=== PATIENT | male | born 1980 | race American Indian/Alaskan Native ===

== ENCOUNTER 2017-10-05 12:17 | Emergency (ER) | payer OTHER ==
[2017-10-05 12:29] VITALS: BP 143/84
[2017-10-05] MEDS ORDERED: VALIUM PO ONE (15:31)
[2017-10-05] MEDS ORDERED: TORADOL IM ONE (15:31)
--- NOTE | 2017-10-05 15:36 | Emergency Department Report ---
Chief Complaint: Pain General Stated Complaint: NECK/BACK/BILATERAL WRIST PAIN Time Seen by Provider: 10/05/17 15:22 - HPI History of Present Illness: 37-year-old Somali male presents to the emergency department with a complaint of bilateral wrist pain, back pain and neck pain that he believes is an exacerbation of an old injury. Back at the end of 2015 the patient fell on some ice at work and followed up with orthopedists and ended up going to physical therapy. Recently the patient says that he was getting a 25 foot ladder off his truck and suddenly began having a return of pain in these regions. He denies any numbness or paresthesias, problems with bowel or bladder or any neurological deficits. He otherwise denies any other past medical history. He's tried some ibuprofen for his symptoms without much relief. - ROS Review of Systems: Positive for wrist pain, back pain, neck pain, muscle tension Negative for numbness or paresthesias, problems with bowel or bladder, neurological deficits or any obvious deformities. - Exam Vital Signs: Vital Signs 10/05/17 12:24 Temperature 99 F Pulse Rate 97 H Respiratory 18 Rate Blood Pressure 143/84 O2 Sat by Pulse 97 Oximetry Physical Exam: There is tenderness palpation to the bilateral wrists but no obvious deformity. He has both midline and bilateral paraspinal tenderness to palpation to the lumbar and lower thoracic back with associated musculature. He has some tenderness to palpation to the midline, paraspinal and trapezius section of the neck/cervical spine. Heart and lung sounds are normal to auscultation. MSE screening note: Focused history and physical exam performed. Due to findings the following was ordered: I ordered x-rays of the bilateral wrists, thoracic/lumbar/cervical spine. He was given IM Toradol and oral Valium muscle relaxer for discomfort. ED Disposition for MSE Condition: Stable Referrals: PRIMARY CARE, [Primary Care Provider] - 3-5 Days
--- NOTE | 2017-10-05 16:33 | XRay Report ---
FINAL REPORT EXAM: XR WRIST BILAT 3+V HISTORY: wrist pain TECHNIQUE: 3 views of both right and left wrists. PRIORS: None. FINDINGS: Joint spaces maintained. No apparent fracture or dislocation. Soft tissues grossly unremarkable. IMPRESSION: 1. No acute osseous abnormality.
--- NOTE | 2017-10-05 16:34 | XRay Report ---
FINAL REPORT EXAM: XR SPINE CERVICAL 2-3V HISTORY: neck pain TECHNIQUE: AP, lateral, swimmer's and odontoid views of cervical spine. PRIORS: None. FINDINGS: Mild disc space narrowing, endplate sclerosis and spurring in the C5-6 level. Mild endplate sclerosis and spurring in the C6-7 level. No loss of height or gross malalignment of cervical vertebral bodies. No obvious osseous destruction. Prevertebral soft tissues grossly unremarkable. IMPRESSION: 1. No acute osseous abnormality. 2. Degenerative changes.
--- NOTE | 2017-10-05 16:35 | XRay Report ---
FINAL REPORT EXAM: XR SPINE THORACIC 2V HISTORY: back pain TECHNIQUE: AP and lateral views of thoracic spine. PRIORS: None. FINDINGS: Mild degenerative changes in mid thoracic spine. No loss of height or gross malalignment of thoracic vertebral bodies. No obvious osseous destruction. Paraspinal soft tissues grossly unremarkable. IMPRESSION: 1. No acute osseous abnormality. 2. Degenerative changes.
--- NOTE | 2017-10-05 16:35 | XRay Report ---
FINAL REPORT EXAM: XR SPINE LUMBOSACRAL 2-3V HISTORY: back pain TECHNIQUE: AP, lateral and coned-down views of lumbar spine. PRIORS: None. FINDINGS: No loss of height or gross malalignment of lumbar vertebral bodies. No obvious osseous destruction. Lumbar disc spaces maintained. Paraspinal soft tissues grossly unremarkable. IMPRESSION: 1. No acute osseous abnormality.
--- NOTE | 2017-10-05 17:30 | Emergency Department Report ---
HPI - General Chief Complaint: Pain General Time Seen by Provider: 10/05/17 15:22 - HPI HPI: 37-year-old [place] male presents to the emergency department with a complaint of bilateral wrist pain, back pain and neck pain that he believes is an exacerbation of an old injury. Back at the end of 2015 the patient fell on some ice at work and followed up with orthopedists and ended up going to physical therapy. Recently the patient says that he was getting a 25 foot ladder off his truck and suddenly began having a return of pain in these regions. He denies any numbness or paresthesias, problems with bowel or bladder or any neurological deficits. He otherwise denies any other past medical history. He's tried some ibuprofen for his symptoms without much relief. ED Past Medical Hx - Past Medical History Previous Medical History?: No - Surgical History Past Surgical History?: No - Social History Smoking Status: Current Every Day Smoker Substance Use Type: None - Medications Home Medications: Home Medications Medication Instructions Recorded Confirmed Last Taken Type HYDROcodone/APAP 5-325 [Holladay 1 each PO Q6HR PRN #14 tablet 10/05/17 Unknown Rx 5/325] ED Review of Systems ROS: Stated complaint: NECK/BACK/BILATERAL WRIST PAIN Other details as noted in HPI Comment: All other systems reviewed and negative Constitutional: denies: chills, fever Eyes: denies: eye pain, eye discharge, vision change ENT: denies: ear pain, throat pain Respiratory: denies: cough, shortness of breath, wheezing Cardiovascular: denies: chest pain, palpitations Gastrointestinal: denies: abdominal pain, nausea, diarrhea Genitourinary: denies: urgency, dysuria Musculoskeletal: back pain, arthralgia, myalgia Skin: denies: rash, lesions Neurological: denies: weakness, numbness Physical Exam - Physical Exam Vital Signs: Vital Signs 10/05/17 10/05/17 12:24 15:42 Temperature 99 F Pulse Rate 97 H Respiratory 18 18 Rate Blood Pressure 143/84 O2 Sat by Pulse 97 Oximetry Physical Exam: GENERAL: The patient is well-developed well-nourished. HENT: Normocephalic. Atraumatic. Patient has moist mucous membranes. EYES: Extraocular motions are intact. NECK: Supple. Trachea is midline. He has both midline and paraspinal tenderness to palpation but no step-off or deformity. CHEST/LUNGS: Clear to auscultation. There is no respiratory distress noted. HEART/CARDIOVASCULAR: Regular. There is no tachycardia. There is no murmur. ABDOMEN: Abdomen is soft, nontender. Patient has normal bowel sounds. Obese habitus. SKIN: Skin is warm and dry. NEURO: The patient is awake, alert, and oriented. The patient is cooperative. The patient has no focal neurologic deficits. The patient has normal speech. MUSCULOSKELETAL: There is tenderness to palpation to the bilateral circumferential wrists. No obvious deformity. Radial pulse +2 over 4 bilaterally. BACK: There is both midline and paraspinal lumbar and lower thoracic back. No step-off or deformity. ED Course Vital Signs 10/05/17 10/05/17 12:24 15:42 Temperature 99 F Pulse Rate 97 H Respiratory 18 18 Rate Blood Pressure 143/84 O2 Sat by Pulse 97 Oximetry ED Medical Decision Making - Radiology Data Radiology results: image reviewed interpreted by me: X-ray of the bilateral wrists, lumbar/cervical/thoracic spine do not show any fractures, dislocations, subluxations or any acute process. - Medical Decision Making The patient presents with pain to the bilateral wrists, his back and his neck after trying to lift a heavy ladder out of his truck. He believes that this is a exacerbation of a previous injury when he fell on some ice about 2 years ago. Physical examination there is no obvious deformity and edema the areas that he has had headache discomfort. X-rays were done of the bilateral wrist and his entire spine and there does not appear to be any fracture, dislocation, subluxation or any acute processes. He was given some anti-inflammatories and muscle relaxers in the emergency department with some improvement. Vital signs stable. He was discharged home to follow up with orthopedist and encouraged to return to the emergency Department with any worsening of symptoms or any acute distress. - Differential Diagnosis fracture, contusion, sprain, strain, dislocation Critical Care Time: No Critical care attestation.: If time is entered above; I have spent that time in minutes in the direct care of this critically ill patient, excluding procedure time. ED Disposition Clinical Impression: Neck pain, Bilateral wrist pain Back pain Qualifiers: Back pain location: low back pain Chronicity: unspecified Back pain laterality : bilateral Sciatica presence: without sciatica Qualified Code(s): M54.5 - Low back pain Disposition: DC-01 TO HOME OR SELFCARE Is pt being admited?: No Condition: Stable Instructions: Arthralgia (ED), Back Pain (ED) Additional Instructions: Please follow-up with the orthopedist as soon as possible. Return to the emergency Department with any worsening of your symptoms or any acute distress. You have been prescribed a medication that is sedating and therefore should not be taken prior to driving, working, and responsible for children and in no way should be mixed with alcohol of any quantity. Prescriptions: HYDROcodone/APAP 5-325 [Holladay 5/325] 1 each PO Q6HR PRN #14 tablet PRN Reason: Pain Referrals: [facility] [Provider Group] - 3-5 Days Time of Disposition: 17:30
== END 2017-10-05 17:40 | disposition home or self-care (01) ==
LOC: ED 12:17
DX: M25.531 Pain in right wrist (principal); M25.532 Pain in left wrist; M54.2 Cervicalgia; M54.5 Low back pain; F17.200 Nicotine dependence, unspecified, uncomplicated
CPT/HCPCS: 72040; 72070; 72100; 73110; 96372; 99283; J1885